=== PATIENT | female | born 1995 | race Caucasian/White ===

== ENCOUNTER → 2018-10-09 | Outpatient (CLI) | payer BC ==
[~2018-10-09] MED LIST: METPRE4DP PO; SPIR25 PO
== END ==
LOC: LAB 13:20 → LAB SHORT 13:20
PROVIDERS: Student in an Organized Health Care Education/Training Program
DX: Z01.419 Encounter for gynecological examination (general) (routine) without abnormal findings (principal)
CPT/HCPCS: 87625; G0145